=== PATIENT | female | born 1975 | race Caucasian/White ===

== ENCOUNTER → 2022-07-08 | Outpatient (CLI) | payer BC, OTHER | LOC: MC.RAD 07:08 | DX: Z12.31 Encounter for screening mammogram for malignant neoplasm of breast (principal) ==

== ENCOUNTER → 2022-07-10 | Outpatient (CLI) | payer BC, OTHER | LOC: MC.RAD 12:49 | DX: R92.8 Other abnormal and inconclusive findings on diagnostic imaging of breast (principal) ==